=== PATIENT | female | born 1945 | race Caucasian/White ===

== ENCOUNTER 2024-06-27 13:51 | Emergency (ER) | payer SELFPAY ==
[2024-06-27 13:53] VITALS: BP 159/89
--- NOTE | 2024-06-27 15:17 | ED.GENMED ---
History of Present Illness
General
Chief Complaint: Nose Bleed
Source: patient
Exam Limitations: none
Time Seen by Provider: 06/27/24 14:26
Nursing documentation reviewed up to this point in time: agreed with
History of Present Illness
History of Present Illness:
78 Y/O f WITH H/O AFIB ON ELIQUIS
h/o nosebleeds
here with nosebleed off andon x 3 days from L nostril, minimal
then today about 1.5 hours [employer] pt started spontaensouly bleeding from L nostril
had a clot down the back of her throat but no other clots
she tried holding pressure but it didn't stop until she came here and someone put the clamps on her nose
she has not had any lightheadedness or near syncope
no vomiting
Past History
Past History
ED Past Medical History: Arrthythmia and Hypercholesterolemia
Social History
Tobacco: Non-smoker
Alcohol: None
Review of Systems
Review of Systems
Allergies reviewed?: Yes
All Other Systems: Not applicable
Phy Exam
Physical Exam
Physical Exam:
GENERAL: Alert , in no apparent distress
ENT: o/p clr, mmm.
no active bleeding
dried blood in L nostril
small amount of dried blood posterior pharnx, no oozing
CARDIAC: Regular rate and rhythm .
LUNGS: Clear breath sounds bilaterally, no acute respiratory distress, no wheezes/rales/rhonchi
NEUROLOGICAL: Alert and oriented, no focal neuro deficits
SKIN: Warm and dry, skin intact.
PSYCH: Normal and appropriate interaction.
Course
Orders/Labs/Results
Orders:
Orders
06/27/24 14:34
Phenylephrine 0.5% Regular Spr [Prieto-Synephrine 0.5% Nasal [place]] 1 spray .ROUTE .[facility]
Vital Signs
Initial and Last Documented VS:
Initial Vital Signs
Temp Pulse Resp BP Pulse Ox
98.1 F 66 18 159/89 98
06/27/24 13:53 06/27/24 13:53 06/27/24 13:53 06/27/24 13:53 06/27/24 13:53
Last Documented Vital Signs
Temp Pulse Resp BP Pulse Ox
98.1 F 59 18 179/71 98
06/27/24 13:53 06/27/24 18:01 06/27/24 18:01 06/27/24 18:01 06/27/24 18:01
MDM/Problems Addressed
Differential Diagnosis Includes:
nosebleed
MDM/Problems Addressed:
78 y/o F with ho nosebleeds on AC
here with L nose bleed x 1.5 hours
oozing with 1 clot
no vomiting, near syncope
no significant volume
clamped in triage, no bleeding
no obvious focal area in L nostril to cauterize
pt asked to blow her nose and a few clots came out of L nostril
both nostrils had 2 sprays neosynephrine and then i soaked a cotton ball in neosynephrine and lidocaine and clamped pt for 30 minutes
after clamp removed, no activ ebleeding
at this point, no area to focally cauterize
will watch her some more, asked her to move about the room to be sure it won't restart
she is aware that if it does restart, that packing would be likely
NOTE THAT UPON DISCHARGE, PT STARTED HAVING OOZING FROM HER L NOSTRIL, SMALL DRIP;
DECISION WAS MADE TO PACK THE NOSTRIL
I USED A SMALL 5.5 ANTERIOR PACKING
SHE WAS OBSERVED FOR 45 MIN BUT WAS THEN HAVING WORSE BLEEEDING DRIPPING AND PSOTERIOR PHARYNX BLEW OUT A CLOT
I SWITCHED OUTT HE PACKING TO 7.5 AND THEN OBSERVED FOR ANOTHER 45 MIN AND NO REBLEEDING.
*Critical Care Note
Total Time (30-74mins, 75-104mins- exclusive of procedures): Not Applicable
ED Attending Note
-
Portions of this chart may have been created with voice recognition software.� Occasional wrong word or��sound alike� substitutions may have occurred due to the inherent limitations of voice recognition software.
Discharge Plan
Departure
Patient Disposition: Home (Routine Discharge)
Date of Disposition: 06/27/24
Time of Disposition: 15:58
Patient with high blood pressure during this ER visit?: No
Condition: Fair
Discharge Problem:
Epistaxis
Instructions: Nosebleeds (DC)
Referrals:
Janelle Gallagher MD [Family Provider] - Follow up in 5-7 days
Myles Hall MD [Active] - Follow up in 2-3 days (ENT)
Activity Restrictions/Additional Instructions:
Leave the packing in place for 2 to 3 days. On either or Wednesday should be seen and have the packing pulled. This can be done in an ear nose and throat office. Call for an appointment and tell them you are in the emergency department with
a nosebleed. If you start bleeding while the packing is in place please return to the ER.
If you cannot get an appointment by Wednesday you can return to the ER on Wednesday to have your packing removed
Interventions
Interventions:
*Risk Screen - Suicide Last Done: 06/27/24 13:53
*General Assessment Last Done: 06/27/24 18:03
*Neglect/Abuse Screening Last Done: 06/27/24 13:53
ED- Fall Risk Assessment Last Done: 06/27/24 18:03
*ED COVID-19 Vaccine History Last Done: 06/27/24 13:58
*Nursing Disposition Last Done: 06/27/24 18:03
ED-EENT Assessment Last Done: 06/27/24 14:48
Discharge Date and Time
Discharge Date/Time: 06/27/24 18:05
Print Language: [place] ISLAND[place]
[2024-06-27 16:32] VITALS: BP 166/82
[2024-06-27 18:01] VITALS: BP 179/71
== END 2024-06-27 18:05 | disposition home or self-care (01) ==
LOC: EMR 13:51
PROVIDERS: EMERGENCY PHYSICIAN Emergency Medicine; FAMILY PHYSICIAN Internal Medicine
DX: R04.0 Epistaxis (principal); I48.91 Unspecified atrial fibrillation; E78.00 Pure hypercholesterolemia, unspecified; Z79.01 Long term (current) use of anticoagulants
CPT/HCPCS: 99282

== ENCOUNTER 2024-06-28 10:51 | Emergency (ER) | payer MEDICARE, OTHER, SELFPAY ==
[2024-06-28 10:55] VITALS: BP 178/78
--- NOTE | 2024-06-28 11:55 | ED.GENMED ---
History of Present Illness
General
Chief Complaint: Nose Bleed
Source: patient
Exam Limitations: none
Time Seen by Provider: 06/28/24 11:47
Nursing documentation reviewed up to this point in time: agreed with
History of Present Illness
History of Present Illness:
78-year-old female with history of A-fib on Eliquis returns for a right-sided nosebleed. She was evaluated and treated here for a left epistaxis yesterday and has the rapid Rhino packing still intact with no active bleeding.
She has an appointment with the ENT in 2 days
Past History
Past History
ED Past Medical History: Arrthythmia and Hypercholesterolemia
Social History
Tobacco: Non-smoker
Alcohol: None
Employment: Retired
Review of Systems
Review of Systems
Allergies reviewed?: Yes
All Other Systems: ROS reviewed and negative except as documented in HPI and ROS
Constitutional: Denies fever
EENT: Reports other (Bleeding from right nostril)
Respiratory: Denies trouble breathing
Cardiac: Denies chest pain
ABD/GI: Denies nausea
Neurological: Denies dizzy or weakness
Phy Exam
Physical Exam
Physical Exam:
GENERAL: No acute distress. A&Ox3.
CONSTITUTIONAL: Afebrile.
EYES: cear, conjunctivae normal
ENMT: moist mucus membranes, Pharynx with minimal blood, small amount bleeding from right nostril
RESPIRATORY: Regular respirations, nonlabored, lungs clear.
CARDIOVASCULAR: Regular rate and rhythm, no murmurs, no rubs.
MUSCULOSKELETAL: Moves with ease. Well perfused.
SKIN: Warm, dry, pink
PSYCH: Normal mood and affect. Well kept, interactive and appropriate
NEUROLOGIC: Awake, alert and oriented. No focal neurological deficits
Course
Orders/Labs/Results
Orders:
Orders
06/28/24 11:50
Tranexamic Acid 1,000 mg .ROUTE .[facility]
Vital Signs
Initial and Last Documented VS:
Initial Vital Signs
Temp Pulse Resp BP Pulse Ox
98.3 F 68 18 178/78 94
06/28/24 10:55 06/28/24 10:55 06/28/24 10:55 06/28/24 10:55 06/28/24 10:55
Last Documented Vital Signs
Temp Pulse Resp BP Pulse Ox
98.3 F 68 18 178/78 94
06/28/24 10:55 06/28/24 10:55 06/28/24 10:55 06/28/24 10:55 06/28/24 10:55
Procedures
Nosebleed
Drug treatment: Lidocaine and Epinephrine
Treatment: Silver nitrate cautery
Post treatment bleeding: none- good control
MDM/Problems Addressed
MDM/Problems Addressed:
78-year-old female with history of A-fib on [facility] returns for a right-sided nosebleed. She was evaluated and treated here for a left epistaxis yesterday and has the rapid Rhino packing still intact with no active bleeding.
She has an appointment with the ENT in 2 days
The left nostril packing is intact with no bleeding
There is minimal bleeding in the posterior pharynx
There is an obvious site of small amount constant oozing/bleeding at Kiesselbach's plexus right nostril.
12:10 PM:
Right epistaxis has stopped post cauterization.
*Critical Care Note
Total Time (30-74mins, 75-104mins- exclusive of procedures): Not Applicable
ED Attending Note
-
Portions of this chart may have been created with voice recognition software.� Occasional wrong word or��sound alike� substitutions may have occurred due to the inherent limitations of voice recognition software.
Discharge Plan
Departure
Patient Disposition: Home (Routine Discharge)
Date of Disposition: 06/28/24
Time of Disposition: 12:11
Patient with high blood pressure during this ER visit?: No
Condition: Good
Discharge Problem:
Right-sided nosebleed
Instructions: Nosebleeds (DC)
Referrals:
Janelle Gallagher MD [Family Provider] -
Myles Hall MD [Active] - Keep scheduled appt
Activity Restrictions/Additional Instructions:
As discussed, keep your appointment with ENT in 2 days.
Interventions
Interventions:
*Risk Screen - Suicide Last Done: 06/28/24 12:26
*General Assessment Last Done: 06/28/24 10:55
*Neglect/Abuse Screening Last Done: 06/28/24 12:26
ED- Fall Risk Assessment Last Done: 06/28/24 12:26
*ED COVID-19 Vaccine History Last Done: 06/28/24 12:26
*Nursing Disposition Last Done: 06/28/24 12:26
ED-EENT Assessment Last Done: 06/28/24 12:08
Discharge Date and Time
Discharge Date/Time: 06/28/24 12:28
Print Language: [place]
== END 2024-06-28 12:28 | disposition home or self-care (01) ==
LOC: EMR 10:51
PROVIDERS: EMERGENCY PHYSICIAN Emergency Medicine; FAMILY PHYSICIAN Internal Medicine
DX: R04.0 Epistaxis (principal); I48.91 Unspecified atrial fibrillation; E78.00 Pure hypercholesterolemia, unspecified; Z79.01 Long term (current) use of anticoagulants
CPT/HCPCS: 30901; 99282

== ENCOUNTER 2024-06-28 14:09 | Emergency (ER) | payer MEDICARE, OTHER, SELFPAY ==
[2024-06-28 14:11] VITALS: BP 167/87
--- NOTE | 2024-06-28 17:06 | ED.GENMED ---
History of Present Illness
General
Chief Complaint: Nose Bleed
Source: patient
Exam Limitations: none
Time Seen by Provider: 06/28/24 16:15
Nursing documentation reviewed up to this point in time: agreed with
History of Present Illness
History of Present Illness:
Tanmay states she was seen in ED 2 days ago for left nosebleed. Left nare packed with ant. packing and she was discharged home. Returnted this AM after developing right sided nose bleed. Ant bleed located and cauterized and she was discharged
home, Returns again with repeat right nose bleed. ALso notes left nasal packing is sliding out. Brought to ED by friend for eval.
Past History
Past History
ED Past Medical History: Arrthythmia and Hypercholesterolemia
Social History
Tobacco: Non-smoker
Alcohol: None
Employment: Retired
Review of Systems
Review of Systems
Allergies reviewed?: Yes
All Other Systems: ROS reviewed and negative except as documented in HPI and ROS
Constitutional: Reports no symptoms
EENT: Reports other (right ant nose bleed. Left nasal packing dislodged)
Respiratory: Reports no symptoms
Cardiac: Reports no symptoms
ABD/GI: Reports no symptoms
: Reports no symptoms
Musculoskeletal: Reports no symptoms
Skin: Reports no symptoms
Neurological: Reports no symptoms
Psychiatric: Reports no symptoms
Phy Exam
General Physical Exam
General Presentation: well appearing
General age: appears stated age
General Skin: warm and dry
General Habitus: normal
General Mental: alert
ENT Exam
ENT Exam: other (Right nare with ant bleeding located. epi/lidocaine applied via cotton ball. Site cauterized. No further bleeding.)
Additional ENT: Left nasal packing dislodged, removed by me. No active bleeding. R
Neurological Exam
Neurological Exam: alert, oriented x3 and CN II-XII intact
Musculoskeletal Exam
Musculoskeletal Exam: full ROM
Skin Exam
Skin Exam: normal color, warm/dry and no rash
Psychiatric Exam
Psychiatric Exam: normal mood/affect
Course
Vital Signs
Initial and Last Documented VS:
Initial Vital Signs
Temp Pulse Resp BP Pulse Ox
98.2 F 74 18 167/87 99
06/28/24 14:11 06/28/24 14:11 06/28/24 14:11 06/28/24 14:11 06/28/24 14:11
Last Documented Vital Signs
Temp Pulse Resp BP Pulse Ox
98.2 F 74 18 167/87 99
06/28/24 14:11 06/28/24 14:11 06/28/24 14:11 06/28/24 14:11 06/28/24 14:11
MDM/Problems Addressed
Differential Diagnosis Includes:
Patient to ED with right nare recurrent bleed. Site located and re-cauterized. No further bleeding noted. Left ant packing dislodged. Removed by me. No active bleeding. She requests holding off on further packing to left nare. WIll return if
bleeding recurs. She is discharged home and will folllow up with ENT as scheduled. No further compplaints.
*Critical Care Note
Total Time (30-74mins, 75-104mins- exclusive of procedures): Not Applicable
ED Attending Note
-
Portions of this chart may have been created with voice recognition software.� Occasional wrong word or��sound alike� substitutions may have occurred due to the inherent limitations of voice recognition software.
Discharge Plan
Departure
Patient Disposition: Home (Routine Discharge)
Date of Disposition: 06/28/24
Time of Disposition: 17:05
Patient with high blood pressure during this ER visit?: No
Condition: Good
Covid-19: Not Applicable
Discharge Problem:
Right-sided nosebleed
Instructions: Nosebleeds (DC)
Referrals:
Janelle Gallagher MD [Family Provider] -
Activity Restrictions/Additional Instructions:
Follow up with ENT as scheduled.
Interventions
Interventions:
*General Assessment Last Done: 06/28/24 14:11
*ED COVID-19 Vaccine History Last Done: 06/28/24 14:38
ED-EENT Assessment Last Done: 06/28/24 14:38
Discharge Date and Time
Print Language: MALTESE
[2024-06-28 17:18] VITALS: BP 140/82
== END 2024-06-28 17:25 | disposition home or self-care (01) ==
LOC: EMR 14:09
PROVIDERS: EMERGENCY PHYSICIAN Emergency Medicine; FAMILY PHYSICIAN Internal Medicine
DX: R04.0 Epistaxis (principal); E78.00 Pure hypercholesterolemia, unspecified
CPT/HCPCS: 30901; 99282

== ENCOUNTER 2024-06-29 16:59 | Emergency (ER) | payer MEDICARE, OTHER, SELFPAY ==
[2024-06-29 17:08] VITALS: BP 136/68
--- NOTE | 2024-06-29 20:32 | ED.GENMED ---
History of Present Illness
General
Chief Complaint: Nose Bleed
Source: patient
Exam Limitations: none
Time Seen by Provider: 06/29/24 19:07
Nursing documentation reviewed up to this point in time: agreed with
History of Present Illness
History of Present Illness:
78-year-old female with a past medical history of A-fib on Eliquis presents to the ER for evaluation of epistaxis. This is patient's third visit for epistaxis over the past few days. Initially seen 06/27 and had left nostril packed and was
discharged with ENT referral. She then returned the next day with bleeding from the right nostril and she had visualized source of bleeding which was cauterized. She was discharged and returned later in the day with once again bleeding in the
right nare; previously cauterized site seemed hemostatic and thought was that bleeding was coming from left nare around the packing and so packing was removed however after packing removal patient was hemostatic and so she was discharged. She has
an appointment with ENT tomorrow morning. Tonight about 4:30 PM she started with bleeding again she says mostly in the left nare. Came back to the ER for assessment. She denies any other complaints.
Past History
Past History
ED Past Medical History: Arrthythmia and Hypercholesterolemia
Social History
Tobacco: Non-smoker
Alcohol: None
Employment: Retired
Review of Systems
Review of Systems
All Other Systems: ROS reviewed and negative except as documented in HPI and ROS
EENT: Reports other (Epistaxis)
Respiratory: Denies trouble breathing
Neurological: Denies dizzy
Phy Exam
Physical Exam
Physical Exam:
General: Well appearing and non-toxic
HEENT: protecting airway; patient has dried blood in the left nare but no active bleeding; she has no bleeding in the right nare, prior cautery site on right nasal septum noted and hemostatic; no bleeding noted in the posterior oropharynx
Neck: appears supple
CV: No evidence of cyanosis
Resp: No accessory muscle use
Abd: Non-distended
Extremities: No deformities
Neuro: Alert
Psych: Normal affect
Skin: Intact
Scores
Heart Failure Risk
Heart Failure Risk Score: Not Applicable
Heart Score for Chest Pain Patients
STEMI patient?: Not applicable
Withdrawal Assessment of Alcohol
Withdrawal Assessment Completed?: Not applicable
Course
Vital Signs
Initial and Last Documented VS:
Initial Vital Signs
Temp Pulse Resp BP Pulse Ox
36.8 C 84 18 136/68 100
06/29/24 17:08 06/29/24 17:08 06/29/24 17:08 06/29/24 17:08 06/29/24 17:08
Last Documented Vital Signs
Temp Pulse Resp BP Pulse Ox
36.8 C 84 18 136/68 100
06/29/24 17:08 06/29/24 17:08 06/29/24 17:08 06/29/24 17:08 06/29/24 17:08
MDM/Problems Addressed
Differential Diagnosis Includes:
Epistaxis
MDM/Problems Addressed:
78-year-old female presents with recurrent anterior epistaxis. Fourth visit in the past few days. Has an ENT appointment tomorrow. She has been holding direct pressure and is hemostatic on my assessment however given multiple visits for this will
observe in ED for prolonged period for any rebleeding and have a very low threshold for packing.
Chronic conditions affecting care:
A-fib on Eliquis complicates epistaxis
*Pulse Oximetry
Patient hypoxic: no
*Critical Care Note
Total Time (30-74mins, 75-104mins- exclusive of procedures): Not Applicable
Data Reviewed
Source: patient and records
ED Attending Note
-
Portions of this chart may have been created with voice recognition software.� Occasional wrong word or��sound alike� substitutions may have occurred due to the inherent limitations of voice recognition software.
Discharge Plan
Departure
Referrals:
Aileen,Janelle R., MD [Family Provider] -
Interventions
Interventions:
*Risk Screen - Suicide Last Done: 06/29/24 17:07
*General Assessment Last Done: 06/29/24 17:07
*Neglect/Abuse Screening Last Done: 06/29/24 17:07
Discharge Date and Time
Print Language: [place]
[2024-06-29 21:01] VITALS: BP 128/65
[2024-06-29 22:04] VITALS: BP 118/59
== END 2024-06-29 22:06 | disposition home or self-care (01) ==
LOC: EMR 16:59
PROVIDERS: EMERGENCY PHYSICIAN Emergency Medicine; FAMILY PHYSICIAN Internal Medicine
DX: R04.0 Epistaxis (principal); I48.91 Unspecified atrial fibrillation; E78.00 Pure hypercholesterolemia, unspecified; Z79.01 Long term (current) use of anticoagulants
CPT/HCPCS: 99282